=== PATIENT | female | born 1935 | race Caucasian/White ===

== ENCOUNTER 2016-09-04 13:26 | Inpatient (IN) | payer MEDICARE ==
--- NOTE | 2016-11-13 08:23 | HP ---
DATE OF CLINIC: 11/07/2016 REBEKAH SCHWARTZ : 1935 PLANNED PROCEDURE: Right Total Knee Arthroplasty DATE OF PROCEDURE: November 13, 2016 SURGEON: Cuate Dawn M.D. PCP: Dr. Chhaya Wilson HISTORY OF PRESENT ILLNESS Rebekah Schwartz is an 81 year old female. * Medication list reviewed with patient allergy list reviewed with patient. * Tried NSAIDS * Has not tried Physical Therapy * Has not tried Injections Mrs. Schwartz is in today pre-operatively with her grandson for her upcoming right total knee arthroplasty with Dr. Dawn on 11/13/16. Patient presents in good spirits and is ready to proceed. She denies recent illness, change in health, or prior surgical complications. She states she is quite sensitive to pain medications. Her recent consult follows: The patient is post a left total knee arthroplasty with Dr. Henriquez at [facility] on August 26, 2013 and at that point in time it was a tossup of which knee to do first, but the patient has opted to pursue further care here with Dr. Dawn. The patient notes that she has had pain on the medial aspect of her knee for quite some time with weight-bearing activity. Over the past three months she states that it is severe, it limits her from starting up from a seated position, forcing her to get assistance and push off with her arms she knows that it takes two or three steps before she can get into her gait without rather intense pain. This is limiting her ADLs and desired activities the patient has had some intervention with physical therapy at [facility] previously. She has not had arthroscopy or injections. She has mild swelling with activity, but no specific mechanical symptoms. She denies any hip pain or radicular symptoms. She is starting to experience more and more night discomfort. Medical comorbidities include hypertension and dyslipidemia. She has otherwise not had any recent illness or change in health. She is interested in further discussion today with respect to definitive management options. For personal reasons she is interested in transferring her care to our office. CURRENT MEDICATION * Adult Aspirin EC Low Strength 81 MG Tablet Delayed Release 1 once a day 0 days, 0 refills * Metoprolol Succinate ER 25 MG Tablet Extended Release 24 Hour 1 once a day 90 days, 0 refills * Simvastatin 20 MG Tablet 1 once a day 0 days, 0 refills * TraMADol HCl 50 MG Tablet 1 poq 6 hours prn pain, 10 days, 0 refills PAST MEDICAL/SURGICAL HISTORY Reported: Medical: Stomach problems ulcers, cancer eyelid, and Hypertension. Surgical / Procedural: Knee replacement Left knee replaced and Eye Surgery. SOCIAL HISTORY Behavioral: Never smoked. Smoking status: Never smoker. Work: Occupation Retired. ALLERGIES * Sulfa Drugs REVIEW OF SYSTEMS Systemic: No fever and no recent weight change. Head: No head symptoms. Cardiovascular: No cardiovascular symptoms. Pulmonary: No pulmonary symptoms. Gastrointestinal: Gastrointestinal symptoms GERD. Psychological: No psychological symptoms. Skin: No skin lesions and no rash. PHYSICAL FINDINGS * Vitals taken 11/07/2016 11:12 am BP-Sitting R 117/59 mmHg 100 - 120/56 - 80 BP Cuff Size Regular Pulse Rate-Sitting 62 bpm 50 - 100 Temp-Oral 96.8 F 96 - 101 Height 62.5 in 59 - 68 Weight 135 lbs 94 - 170 Body Mass Index 24.3 kg/m2 Body Surface Area 1.63 m2 Pain Level 2 Ears, Nose, Throat: * ENT: normal. Lungs: * Clear to auscultation. Cardiovascular: Heart Rate and Rhythm: * Normal. Abdomen: * Normal. Neurological: Motor: * Dominant Hand = Right Hand. Patient is a thin, well-nourished female in no acute distress, normal-appearing mood and affect. She stands with a genu varum and has a varus thrust on ambulation with a flexed, antalgic gait. Right knee exam shows skin integrity to be well-preserved, no wounds, rashes or lesions. She does have genu varum with trace pseudolaxity to varus stress. It is not completely correctable to neutral. She is tender diffusely both medially and laterally. She has pain with patellar compression and some crepitation. Ligamentous exam is grossly intact for cruciates. ROM actively is 10-100 degrees, passively slightly more than this in both flexion and extension with pain. Mildly tender over the anteromedial proximal tibia. Calf is soft and NT. Distal light touch sensation and motor function are grossly intact and symmetric. Pulses are palpable. Gentle rotation of the hip is non-irritable. Contralateral knee shows a well-healed anterior incision, reasonable joint play and alignment. Motion is 0-120 degrees with good patellar tracking. No focal periarticular tenderness. TESTS X-rays from 11/09/16 show complete medial joint space loss, periarticular sclerosis and marginal medial spurring. There is some chondrocalcinosis of the lateral compartment, patellofemoral joint has mild irregularity with superior-inferior osteophytes. ASSESSMENT * Localized primary osteoarthritis of the right knee Advanced DJD, right knee. S/P left TKA done elsewhere, clinically doing well. THERAPY * Patient fall risk screen negative. * Patient eligible for fall risk assessment. * Patient received fall risk assessment. PLAN * Unilateral primary osteoarthritis, right knee Physical Therapy: *Other * OTHER TraMADol HCl 50 MG TABS, 1-2 tabs every 6 to 8 hours prn pain-TO BE USED FOR AFTER SURGERY, 10 days, 0 refills * Total knee arthroplasty -Right Discussed with patient in detail the limitations, expectations as well as risks and possible complications of surgery including, but not limited to wound problems or infection, neurovascular injury, continued knee pain or dysfunction, including the possibility of prosthetic wear or failure over time that may require additional operative or nonoperative treatment. Patient also realizes the perioperative risks including risks associated with anesthesia and would like to proceed. A full PAR conference was held, questions and concerns addressed and informed consent was obtained. Patient will be sent from my office for completion of the preoperative workup. [facility] consult for perioperative medical management Patient will use aspirin 325mg daily for 6 weeks postoperatively for DVT prophylaxis. Patient would like to perform their postop PT at [facility] and PT Kaylah Mazariegos with right total knee arthroplasty protocol. CARE TEAM Chhaya MCKEON [facility] CC: Chhaya MCKEON [facility] Kaylah Mazariegos RS/sg
[2016-11-13] MEDS ORDERED: OXYCODONE HCL 10 MG TAB.SR PO ONE ×2 (12:00→12:46)
[2016-11-13] MEDS ORDERED: TRAMADOL HCL 50 MG TABLET PO ONE (12:00)
[2016-11-13] MEDS ORDERED: GABAPENTIN 600 MG TABLET PO ONE (12:00)
[2016-11-13] MEDS ORDERED: CELECOXIB 200 MG CAPSULE PO ONE (12:00)
[2016-11-13] MEDS ORDERED: ONDANSETRON 4 MG/2ML 2 ML VIAL IV ONE (12:00)
[2016-11-13] MEDS ORDERED: FAMOTIDINE 20 MG TABLET PO ONE (12:00)
[2016-11-13] MEDS ORDERED: CLONIDINE HCL 0.1 MG/24 HR (7 DAY PATCH) TD SCH (12:00)
[2016-11-13] MEDS ORDERED: CEFAZOLIN SODIUM 2 GRAM PREMIX 100 ML IV PRN (12:00)
[2016-11-13] MEDS ORDERED: LACTATED RINGERS 1,000 ML ONE (12:17)
[2016-11-13] MEDS ORDERED: IV START KIT ONE (12:17)
[2016-11-13] MEDS ORDERED: CEFAZOLIN SODIUM 2 GRAM PREMIX 100 ML IV ONE (12:19)
[2016-11-13] MEDS ORDERED: TRAMADOL HCL 50 MG TABLET ONE (12:46)
[2016-11-13] MEDS ORDERED: GABAPENTIN 600 MG TABLET ONE (12:46)
[2016-11-13] MEDS ORDERED: FAMOTIDINE 20 MG TABLET ONE (12:46)
[2016-11-13] MEDS ORDERED: ONDANSETRON 4 MG/2ML 2 ML VIAL ONE (12:46)
[2016-11-13] MEDS ORDERED: CLONIDINE HCL 0.1 MG/24 HR (7 DAY PATCH) TD ONE (12:47)
[2016-11-13] MEDS ORDERED: CELECOXIB 200 MG CAPSULE ONE (12:47)
[2016-11-13] MEDS ORDERED: SPINAL PROCEDURAL TRAY 1 EACH ONE (12:58)
[2016-11-13] MEDS ORDERED: NERVE BLOCK PROCEDURAL TRAY 1 EACH ONE (12:58)
[2016-11-13] MEDS ORDERED: ROPIVACAINE 0.5% 30 ML VIAL ONE (12:58)
[2016-11-13] MEDS ORDERED: MIDAZOLAM HCL 1 MG/ML 2ML VIAL ONE (13:01)
[2016-11-13] MEDS ORDERED: FENTANYL 100 MCG/2 ML VIAL ONE (13:01)
[2016-11-13] MEDS ORDERED: FENTANYL 100 MCG/2 ML VIAL IV PRN (13:16)
[2016-11-13] MEDS ORDERED: ON-Q PUMP/ROPIVACAINE 0.2% 450 ML in PREMIX BAG 1 EACH NB PRN ×2 (13:16→17:57)
[2016-11-13] MEDS ORDERED: HYDRALAZINE HCL 20 MG/1 ML VIAL IV PRN (13:16)
[2016-11-13] MEDS ORDERED: NALOXONE HCL 0.4 MG/ML VIAL IV PRN (13:16)
[2016-11-13] MEDS ORDERED: HYDROMORPHONE HCL 1 MG/ML SYRINGE IV PRN (13:16)
[2016-11-13] MEDS ORDERED: MEPERIDINE 25 MG/ML SYRINGE IV PRN (13:16)
[2016-11-13] MEDS ORDERED: PROMETHAZINE HCL 25 MG/ML VIAL IM PRN (13:16)
[2016-11-13] MEDS ORDERED: ATROPINE SULFATE 0.4 MG/1 ML VIAL IV PRN (13:16)
[2016-11-13] MEDS ORDERED: ONDANSETRON 4 MG/2ML 2 ML VIAL IV PRN ×2 (13:16→17:57)
[2016-11-13] MEDS ORDERED: LABETALOL HCL 5 MG/ML 20ML VIAL IV PRN (13:16)
[2016-11-13] MEDS ORDERED: LACTATED RINGERS 1,000 ML IV SCH (13:30)
[2016-11-13] MEDS ORDERED: TRANEXAMIC ACID 1,000 MG in SODIUM CHLORIDE 0.9% 100 ML IV PRN (14:00)
[2016-11-13] MEDS ORDERED: BUPIVACAINE 0.25% (MDV) 20 ML in SODIUM CHLORIDE 0.9% FLUSH 20 ML IF PRN (14:00)
[2016-11-13] MEDS ORDERED: POLYMYXIN B SULFATE 500,000 UNITS, BACITRACIN 25,000 UNITS in SODIUM CHLORIDE 3 L IRRIG... IR PRN (14:00)
[2016-11-13] MEDS ORDERED: BUPIVACAINE 0.25% (MDV) 24 ML, MORPHINE SULFATE 8 MG, EPINEPHRINE 0.3 MG in SODIUM CHLO... IF PRN (14:00)
[2016-11-13] MEDS ORDERED: PROPOFOL 0 ML IV ONE (14:55)
[2016-11-13] MEDS ORDERED: PROPOFOL 20 ML IV ONE (14:55)
--- NOTE | 2016-11-13 16:58 | PCMBPN ---
Brief Post Op Note: Date of Procedure: 11/13/16 Preoperative Diagnosis: right knee DJD Postoperative Diagnosis: Same Procedure: right TKA Surgeon: Cuate Dawn MD Assist: Rose (WM) Anesthesia: spinal/add block ([place]) Condition: stable to PAR Complications: none IV Fluids: 1300 mLs of LR Urine Output: 300 mLs Estimated Blood Loss: 100 mLs Tourniquet Time: ~45 Specimens: [N/A] Implants: Legion Drains: none
[2016-11-13] MEDS ORDERED: ON-Q PUMP/ROPIVACAINE 0.2% 450 ML ONE (17:24)
--- NOTE | 2016-11-13 17:54 | RAD ---
RIGHT KNEE 2 VIEWS HISTORY: Status post total knee arthroplasty. Frontal and lateral radiographs of the right knee. COMPARISON: 06/06/2016 FINDINGS: POSTPROCEDURAL CHANGE: Status post total knee arthroplasty. ALIGNMENT: Grossly anatomic. Correction of prior varus angulation. FRACTURE: None identified. ADDITIONAL POSTPROCEDURAL FINDINGS: Soft tissue gas, overlying brace IMPRESSION: Grossly unremarkable immediate post arthroplasty appearance of the [right] knee.
[2016-11-13] MEDS ORDERED: KETOROLAC TROMETHAMINE 30 MG/ML 1 ML VIAL IV PRN (17:57)
[2016-11-13] MEDS ORDERED: OXYCODONE HCL 5 MG TABLET PO PRN (17:57)
[2016-11-13] MEDS ORDERED: CALCIUM CARBONATE 500 MG TAB.CHEW PO PRN (17:57)
[2016-11-13] MEDS ORDERED: CEFAZOLIN SODIUM 1 GRAM PREMIX 1 G in Premix (D5W) 50 ml 1 EACH IV SCH (17:57)
[2016-11-13 18:52] VITALS: BMI 23.2
[2016-11-13] MEDS ORDERED: PUMP TUBING ONE (19:38)
[2016-11-13] MEDS: D5 1/2NS with 20 mEq KCL 1,000 ML IV SCH (19:46)
[2016-11-13] MEDS ORDERED: KETOROLAC TROMETHAMINE 15 MG/ML VIAL IV PRN (20:20)
[2016-11-13] MEDS: ACETAMINOPHEN 500 MG TABLET PO SCH (21:45)
[2016-11-13] MEDS: DOCUSATE SODIUM 100 MG CAPSULE PO SCH (21:46)
[2016-11-13] MEDS: SIMVASTATIN 10 MG TABLET PO SCH (21:46)
[2016-11-13] MEDS: ASCORBIC ACID 500 MG TABLET PO SCH (21:46)
[2016-11-13] MEDS: CEFAZOLIN SODIUM 1 GRAM PREMIX 1 G in Premix (D5W) 50 ml 1 EACH IV SCH (23:26)
[2016-11-14] MEDS: ACETAMINOPHEN 500 MG TABLET PO SCH ×4 (03:09→20:48)
[2016-11-14] MEDS: D5 1/2NS with 20 mEq KCL 1,000 ML IV SCH ×2 (03:09→09:08)
[2016-11-14] MEDS: CEFAZOLIN SODIUM 1 GRAM PREMIX 1 G in Premix (D5W) 50 ml 1 EACH IV SCH (06:00)
[2016-11-14 07:16] LABS: HEMATOCRIT 36.3 % (37.0-47.0); HEMOGLOBIN 11.5 gm/l (12.0-16.0); MEAN CELL VOLUME 92.1 fl (81.0-99.0); MEAN CORPUSCULAR HEMOGLOBIN 29.2 pg (27.0-31.0); MEAN CORPUSCULAR HGB CONC 31.7 g/dl (33.0-37.0); RED CELL DISTRIBUTION WIDTH 14.1 % (11.5-14.5)
[2016-11-14] MEDS: REMOVE PATCH 1 EACH UNIT TD ONE ×2 (08:21→11:32)
[2016-11-14] MEDS: METOPROLOL SUCCINATE 25 MG TAB.ER.24H PO SCH (08:29)
[2016-11-14] MEDS: DOCUSATE SODIUM 100 MG CAPSULE PO SCH ×2 (08:34→20:48)
[2016-11-14] MEDS: ASPIRIN (ENTERIC COATED) 325 MG TABLET.EC PO SCH (08:34)
[2016-11-14] MEDS: MULTIVITAMINS 1 TAB TABLET PO SCH (08:34)
[2016-11-14] MEDS: ASCORBIC ACID 500 MG TABLET PO SCH ×2 (08:34→20:48)
[2016-11-14 09:10] LABS: I-STAT CREATININE 0.7 mg/dL (0.6-1.3)
--- NOTE | 2016-11-14 09:37 | PDOC43 ---
- Subjective Findings: Ortho POD 1 R TKA Patient awake, A and O times 4 and in good spirits. No present c/o. Knee pain very well controlled. No meals as of yet however taking PO without complications. Denies CP/SOB/NV. Positive flatus. No ambulatory PT yet. Performing bed exercises without difficulty. Subjective: Denies Chest Pain, Denies Shortness of Breath, Denies Nausea, Denies Vomiting, Denies Fever - Objective Vital Signs Temperature 97.8 F 11/14/16 07:31 Pulse Rate 69 11/14/16 07:31 Respiratory Rate 14 11/14/16 08:00 Blood Pressure 102/56 11/14/16 07:31 O2 Saturation by Pulse Oximetry 93 11/14/16 07:31 Oxygen Delivery Method Room Air Oxygen Flow Rate 0 Laboratory 11/14/16 06:15 11/14/16 06:15 11/14/16 06:15 RBC 3.94 L MCHC 31.7 L Active Medication Orders Category Date Time Status Acetaminophen [Tylenol] Med 11/13/16 20:00 Active 1,000 mg PO Q6H Ascorbic Acid [Vitamin C] Med 11/13/16 21:00 Active 500 mg PO BID Aspirin (Enteric Coated) [Ecotrin] Med 11/14/16 09:00 Active 325 mg PO DAILY Bisacodyl [Dulcolax] Med 11/16/16 17:06 Active 10 mg IA DAILY PRN Calcium Carbonate [Tums] Med 11/13/16 17:57 Active 1,000 - 2,000 mg PO Q2H PRN D5 1/2NS with 20 mEq KCL [D51/2NS with 20 mEq KCL] 1, Med 11/13/16 17:57 Active 000 ml IV 125 mls/hr Docusate Sodium [Colace] Med 11/13/16 21:00 Active 100 mg PO BID Ketorolac Tromethamine [Toradol] Med 11/13/16 20:20 Active 15 mg IV Q6H PRN Magnesium Hydroxide [Milk of Magnesia] Med 11/14/16 17:06 Active 30 ml PO DAILY PRN Metoprolol Succinate [Toprol Xl] Med 11/14/16 09:00 Active 25 mg PO DAILY Multivitamins [One-A-Day] Med 11/14/16 09:00 Active 1 tab PO DAILY On-Q Pump/Ropivacaine 0.2% 450 ml Med 11/13/16 17:57 Active Premix Bag [Premix Fluid] 1 each NB Q50H Ondansetron 4 mg/2ml Vial [Zofran] Med 11/13/16 17:57 Active 4 - 6 mg IV Q6H PRN Oxycodone HCl [Roxicodone] Med 11/13/16 17:57 Active 5 - 10 mg PO Q4H PRN Remove Patch Med 11/14/16 12:00 Once 1 each TD X1 ONE Simvastatin [Zocor] Med 11/13/16 21:00 Active 20 mg PO BEDTIME Sodium Chloride 0.9% Flush [Normal Saline 10ml Flush] Med 11/13/16 17:57 Active 10 - 50 ml IV PRN PRN Sodium Chloride 0.9% Flush [Normal Saline 10ml Flush] Med 11/14/16 01:00 Active 10 ml IV Q8HR Tramadol HCl [Ultram] Med 11/14/16 00:00 Active 50 mg PO Q6H PRN Intake and Output 11/12/16 11/13/16 11/14/16 23:59 23:59 23:59 Intake Total 1500 1525 Output Total 700 950 Balance 800 575 Neurological: No Normal Gait (ambulating with a walker post R TKA) Peripheral Pulses: Right Posterior Tibialis: 1+, Right Dorsalis Pedis: 1+ - Right Lower Extremity Incision: Well Approximated (with a sub Q closure, skn glue and mesh. Moderate knee edema. Thigh and calf are SNT.), No Dressing Saturated, No Shadow Drainage , No Drainage, No Erythema, No Rash Motor: Extensor Hallucis Longus: 5/5, Tibialis Anterior: 4/5, Gastrocnemius: 4/5 , Peroneals: 5/5, Quadriceps: 4/5 Gross Sensation to Light Touch: Present: Deep Peroneal Nerve, Superficial Peroneal Nerve, Medial Plantar Nerve, Lateral Plantar Nerve, Sural Nerve, Saphenous Nerve Motion: Supine AROM: knee 0-50 with passive improvement. SLR without assist. Ankle full AROM - Problems (1) Status post total right knee replacement Status: AcuteAssessment/Plan: Ortho POD 1 R TKA, doing well 1. Anticoagulation with aspirin 325mg daily for 6 weeks, pneumatic compression, TEDS, and mobility. 2. Pain management protocol as written, call for modifications. 3. PT/OT BID, R TKA WBAT 4. Encourage bed exercises, spirometry q hour when awake. 5. DC lidia after am PT. 6. Acute surgical blood loss anemia: stable, monitoring. 7. Disposition: Patient doing well and will likely discharge home 11/15/16.
[2016-11-14] MEDS ORDERED: REMOVE PATCH 1 EACH UNIT TD SCH (12:00)
[2016-11-14 13:20] LABS: CALCIUM 8.6 mg/dL (8.6-10.3)
[2016-11-14] MEDS ORDERED: MAGNESIUM HYDROXIDE 30 ML UDCUP PO PRN (17:06)
[2016-11-14] MEDS: TRAMADOL HCL 50 MG TABLET PO PRN (20:48)
[2016-11-14] MEDS: SIMVASTATIN 10 MG TABLET PO SCH (20:48)
[2016-11-15] MEDS: ACETAMINOPHEN 500 MG TABLET PO SCH ×2 (01:14→07:14)
[2016-11-15 07:14] LABS: HEMATOCRIT 32.2 % (37.0-47.0); HEMOGLOBIN 10.6 gm/l (12.0-16.0)
[2016-11-15 07:24] VITALS: BP 134/61
[2016-11-15] MEDS: MULTIVITAMINS 1 TAB TABLET PO SCH (08:41)
[2016-11-15] MEDS: ASCORBIC ACID 500 MG TABLET PO SCH (08:41)
[2016-11-15] MEDS: TRAMADOL HCL 50 MG TABLET PO PRN (08:41)
[2016-11-15] MEDS: ASPIRIN (ENTERIC COATED) 325 MG TABLET.EC PO SCH (08:41)
[2016-11-15] MEDS: DOCUSATE SODIUM 100 MG CAPSULE PO SCH (08:41)
--- NOTE | 2016-11-15 08:43 | PDOC43 ---
- Subjective Findings: Ortho POD 2 R TKA Patient awake, A and O times 4 this am and in good spirits. States she's more sore today than yesterday but pain is well controlled. Did not sleep well until early am hours. No other c/o. Denies CP/SOB/NV. Taking a regular diet and positive flatus. No BM yet. Good progress with day 1 PT. - Objective Vital Signs Temperature 97.6 F 11/15/16 07:20 Pulse Rate 76 11/15/16 07:20 Respiratory Rate 16 11/15/16 07:38 Blood Pressure 134/61 11/15/16 07:20 O2 Saturation by Pulse Oximetry 96 11/15/16 01:17 Oxygen Delivery Method Room Air Oxygen Flow Rate 0 Laboratory 11/15/16 06:10 11/14/16 06:15 11/14/16 06:15 Estimated GFR 80 H Active Medication Orders Category Date Time Status Acetaminophen [Tylenol] Med 11/13/16 20:00 Active 1,000 mg PO Q6H Ascorbic Acid [Vitamin C] Med 11/13/16 21:00 Active 500 mg PO BID Aspirin (Enteric Coated) [Ecotrin] Med 11/14/16 09:00 Active 325 mg PO DAILY Bisacodyl [Dulcolax] Med 11/16/16 17:06 Active 10 mg [place] DAILY PRN Calcium Carbonate [Tums] Med 11/13/16 17:57 Active 1,000 - 2,000 mg PO Q2H PRN Docusate Sodium [Colace] Med 11/13/16 21:00 Active 100 mg PO BID Magnesium Hydroxide [Milk of Magnesia] Med 11/14/16 17:06 Active 30 ml PO DAILY PRN Metoprolol Succinate [Toprol Xl] Med 11/14/16 09:00 Active 25 mg PO DAILY Multivitamins [One-A-Day] Med 11/14/16 09:00 Active 1 tab PO DAILY Ondansetron 4 mg/2ml Vial [Zofran] Med 11/13/16 17:57 Active 4 - 6 mg IV Q6H PRN Oxycodone HCl [Roxicodone] Med 11/13/16 17:57 Active 5 - 10 mg PO Q4H PRN Simvastatin [Zocor] Med 11/13/16 21:00 Active 20 mg PO BEDTIME Sodium Chloride 0.9% Flush [Normal Saline 10ml Flush] Med 11/13/16 17:57 Active 10 - 50 ml IV PRN PRN Sodium Chloride 0.9% Flush [Normal Saline 10ml Flush] Med 11/14/16 01:00 Active 10 ml IV Q8HR Tramadol HCl [Ultram] Med 11/14/16 00:00 Active 50 mg PO Q6H PRN Intake and Output 11/13/16 11/14/16 11/15/16 23:59 23:59 23:59 Intake Total 1500 2878 334 Output Total 700 2100 300 Balance 800 778 34 Neurological: No Normal Gait (ambulating with a walker post R TKA) Peripheral Pulses: Right Posterior Tibialis: 1+, Right Dorsalis Pedis: 1+ - Right Lower Extremity Incision: Well Approximated (with a subcutaneous closure, skin glue and mesh, moderate swelling. Thigh and calf are SNT.), No Dressing Saturated, No Shadow Drainage, No Drainage, No Erythema, No Rash Motor: Extensor Hallucis Longus: 5/5, Tibialis Anterior: 4/5, Gastrocnemius: 4/5 , Peroneals: 5/5, Quadriceps: 4/5 Gross Sensation to Light Touch: Present: Deep Peroneal Nerve, Superficial Peroneal Nerve, Medial Plantar Nerve, Lateral Plantar Nerve, Sural Nerve, Saphenous Nerve Motion: Supine AROM Knee 0-50 with passive improvement, SLR without assist. Ankle full AROM. - Problems (1) Status post total right knee replacement Status: AcuteAssessment/Plan: Ortho POD 2 R TKA, doing well 1. Continue: Anticoagulation with aspirin 325mg daily for 6 weeks, pneumatic compression, TEDS, and mobility. 2. Continue: Pain management protocol as written, call for modifications. 3. Continue: PT/OT BID, R TKA WBAT 4. Continue: Encourage bed exercises, spirometry q hour when awake. 5. Acute surgical blood loss anemia: stable, monitoring. 6. Disposition: Patient doing well and may discharge home this am after therapy.
[2016-11-15] MEDS: METOPROLOL SUCCINATE 25 MG TAB.ER.24H PO SCH (09:02)
--- NOTE | 2016-11-16 08:28 | DS ---
Rebekah SCHWARTZ [id number] : 1935 DATE OF ADMISSION: November 13, 2016 DATE OF DISCHARGE: November 15, 2016 DISCHARGE DIAGNOSES: Right knee degenerative joint disease. HOSPITAL PROCEDURES: Right total knee arthroplasty. SURGEON: Cuate Dawn M.D. BRIEF HISTORY: Patient is an 81-year-old female with both clinical and radiographic evidence of advanced DJD of their right knee. For the full history please see the chart note. BRIEF HOSPITAL COURSE: Patient was admitted on November 13, 2016. Dr. Cuate Dawn performed a right total knee arthroplasty. They were moved to the recovery room in stable condition. They were given 4 doses of antibiotic for empiric coverage. DVT prophylaxis consisted of aspirin 325 mg, pneumatic compression, HORACIO hose and mobility. PT was instituted postop day 1 with right total knee arthroplasty protocol, weightbearing as tolerated. Their incision site remained benign, their vital signs remained stable and they remained neurally and vascularly intact through the duration of the stay. They were discharged home on postop day, 2 to continue their outpatient PT at [facility] with right total knee arthroplasty protocol, weightbearing as tolerated. DISCHARGE INSTRUCTIONS: 1. Keep the wound site clean. May shower with Aquacel dressing intact. Call office with any questions or concerns and f/u for your dressing change as scheduled 1 week postop. 2. Continue the use of HORACIO hose bilaterally. 3. Cooling unit 3-4 times daily for 30 minutes duration. 4. Outpatient PT at [facility] for right total knee arthroplasty protocol, weightbearing as tolerated. MEDICATIONS: 1. Patient is to resume normal preop medications. 2. Anti-coagulation will be with aspirin, 325 mg daily. 3. Pain management will be with Oxycodone, 5mg 1-2 every 4 hours prn for breakthrough pain, and Tramadol, 50mg every 6 hours prn pain. 4. Patient was also advised on utilization of a multi-vitamin with mineral daily as well as Vitamin C, 500mg daily for 1 month. 5. Patient encouraged to take an iron supplement in the form of ferrous sulfate, 325mg daily for 4 weeks. 6. Colace, 100mg, b.i.d. until regular bowel movement. FOLLOW-UP: Please return to the clinic as scheduled for your first scheduled postop check. Prior to that point in time please call with any questions or concerns. Job [id number] CC: [facility] Chhaya Wilson M.D. [facility]
[2016-11-16] MEDS ORDERED: BISACODYL 10 MG SUP PR PRN (17:06)
--- NOTE | 2016-11-19 14:40 | OP ---
FAINA SCHWARTZ [id number] : 1935 DATE OF SURGERY: November 13, 2016 PREOPERATIVE DIAGNOSIS: Degenerative joint disease right knee POSTOPERATIVE DIAGNOSIS: Same PROCEDURE: Right Total Knee Arthroplasty COMPONENTS: Legion size 4 narrow posterior stabilized Oxinium cemented femoral component, size 3 cemented tibial base plate, 10mm high flexion cross-linked polyethylene articular insert, 32mm resurfacing patella. SURGEON: Cuate Dawn M.D. CAFETERIA MANAGER: Sherine PRICE) ANESTHESIA: Spinal plus adductor nerve block per [facility] ESTIMATED BLOOD LOSS: 100 mL IV FLUID REPLACEMENT: per anesthesia, 1.3 liters crystalloid URINE OUTPUT: 300 cc DRAINS: None TOURNIQUET TIME: Approximately 45 minutes COMPLICATIONS: None HISTORY: Briefly, patient is an 81-year-old female with clinical and radiographic evidence of advanced degenerative disease of their right knee. They have failed traditional non-operative management and desire elective total knee arthroplasty. For additional details, please refer to the previously dictated Preoperative History and Physical Examination. A PAR conference was held, questions and concerns were addressed, and informed consent was obtained. FINDINGS: Tricompartmental changes worse in the medial compartment with fairly notable periarticular osteopenia and marginal spurring in all 3 compartments. She did have a fixed flexion contracture. PROCEDURE: The patient was taken to the operating room after the placement of a spinal anesthetic and adductor nerve block. They were placed supine on the operating room table, a tourniquet was applied to the proximal thigh and the right lower extremity was prepped and draped out in the usual sterile fashion. Preoperative IV antibiotics were given empirically. Intraoperative DVT prophylaxis consisted of contralateral foot pumps. Personal filtration suits were used as was a closed room environment. The leg was then elevated and the tourniquet inflated after gravity exsanguination. This was dropped after exposure and not used again until cementation. Tranexamic acid was infiltrated over 10 minutes prior to incision, 1 gram dose per protocol. A similar 2nd dose was given at initiation of closure. With the knee flexed, an anteromedial incision was made from the level of the tibial tubercle to two centimeters proximal to the superior pole of the patella. A medial arthrotomy was performed with a mini-mid vastus approach. A medial subperiosteal proximal tibial release was performed and a portion of the anterior fat pad was excised to improve visualization. The supra-patellar pouch was raised subperiosteally. The anterior and posterior cruciate ligaments were excised as were the remaining portions of the anterior horns of the medial and lateral menisci. Minimally invasive instrumentation and philosophy were used throughout the procedure in an attempt to decrease the extent of soft tissue disruption/damage. The intramedullary femoral drill was passed followed by the intramedullary alignment esequiel with the 5 degree valgus bushing. We made our provisional anterior cut and then our distal femoral cut flush with the sulcus. We confirmed the size of the femur and placed the appropriate 4-in-1 cutting block making our anterior and posterior condylar cuts followed by the chamfer cuts. Residual marginal osteophytes were removed. Attention was then directed to the tibia which was retracted anteriorly. Remaining meniscal tissue was excised. The extramedullary tibial alignment jig was placed and the proximal tibial cut made as per our preoperative plan perpendicular to the long axis of the tibia. The tibia was sized and we passed the 11 mm. punch. We then balanced the flexion and extension gaps by performing a limited posterior capsular release. We established adequate hemostasis. We then completed the femoral preparation by reaming and chiseling the notch. Femoral and tibial trial components were placed. We were able to obtain full extension with nice roll back and good coronal plane alignment and stability. The patella tracked well and was prepared using the Esteban patellar reaming system removing 9 mm. of bone. Osteophytes were removed prior to this with a rongeur and we performed a circumferential limited denervation using cautery. This was sized accordingly and punch holes were drilled. We marked our tibial rotation and removed the trial components after passing the cruciform tibial punch. The knee was then re-exsanguinated and the tourniquet inflated after establishing adequate hemostasis. Double antibiotic pulsatile lavage was used to irrigate the knee and clean the cancellous chance interstices which were then carefully dried. The first periarticular injection was given, per protocol, in the posterior capsule, posteromedial knee and synovium. Two doses of high viscosity, antibiotic impregnated, polymethylmethacrylate were used to cement the femoral, tibial, and then patellar components. The knee was held in extension while the cement cured. All residual methacrylate was meticulously removed. Attention was then directed towards closure. We irrigated and the retinaculum was closed with a running #2 absorbable StratoFix suture. The 2nd periarticular injection was given, per protocol, anteromedially of the pes anserine, the extensor mechanism and IT band. The repair was checked in maximum flexion. We then lightly irrigated the subcutaneous tissue and closed with interrupted 2-0 and 3-0 Vicryl. The skin was then re-approximated with subcuticular 4-0 Monocryl and Dermabond Prineo. A sterile compression dressing was applied. The patient was then transferred to their hospital bed and sent to the post anesthesia recovery room in stable condition. They tolerated the procedure well. Sponge, instrument, and needle count were correct. CC: Chhaya Wilson MD [facility]
== END 2016-11-15 11:01 | disposition home or self-care (01) | DRG 470 ==
LOC: OR 11-13 11:51 → MS 11-13 18:16
PROVIDERS: ADMIT Orthopaedic Surgery; ATTEND Orthopaedic Surgery
PROC: 0SRC0J9 Replacement of Right Knee Joint with Synthetic Substitute, Cemented, Open Approach (ICD-10-PCS; principal; 2016-11-13)
DX: M17.11 Unilateral primary osteoarthritis, right knee (principal); D62 Acute posthemorrhagic anemia; M11.261 Other chondrocalcinosis, right knee; M25.761 Osteophyte, right knee; I10 Essential (primary) hypertension; E78.5 Hyperlipidemia, unspecified; K21.9 Gastro-esophageal reflux disease without esophagitis; Z79.82 Long term (current) use of aspirin; Z88.2 Allergy status to sulfonamides; Z96.652 Presence of left artificial knee joint